=== PATIENT | male | born 1940 | race Asian ===

== ENCOUNTER 2018-08-12 11:31 | Inpatient (IN) | payer OTHER ==
[~2018-08-12] VITALS: Ht 170.2 cm; Wt 81.6 kg
--- NOTE | 2018-08-12 11:35 | NUR ---
AAOX3, CAME TO ER C/O SUDDEN L LEG NUMBNESS/WEAKNESS AT 1053, NOW ALSO NECK PRESSURE. BLOOD GLUCOSE 195MG/DL. RR IS EVEN AND UNLABORED WITH NAD NOTED. SKIN IS WARM AND DRY. FACE SYMMETRICAL. STRONG AND BILATERAL ECHOCARDIOGRAPHY TECH ON UPPER EXTREMITIES. PLACED ON THE MONITOR. AWAITING MD FOR EVAL.
--- NOTE | 2018-08-12 11:42 | NUR ---
PT TAKEN TO CT
[2018-08-12] MEDS ORDERED: IOHEXOL-350 100 ML VIAL IV ONE (11:43)
[2018-08-12 11:45] LABS: BASOPHILS # (AUTO) 0.1 /CMM (0.0-0.2); BASOPHILS % (AUTO) 1.1 % (0.0-2.0); EOSINOPHILS % (AUTO) 1.4 % (0.0-6.0); HEMATOCRIT 42 % (39-51); HEMOGLOBIN 14.4 g/dL (13.5-17.5); LYMPHOCYTES # (AUTO) 2.1 /CMM (0.8-4.8); LYMPHOCYTES % (AUTO) 28.8 % (20.0-44.0); MEAN CORPUSCULAR HGB CONC 35 g/dl (31.0-36.0); MEAN CORPUSCULAR VOLUME 90 fL (80-96); MONOCYTES # (AUTO) 0.6 /CMM (0.1-1.30); MONOCYTES % (AUTO) 7.5 % (2.0-12.0); NEUTROPHILS # (AUTO) 4.6 /CMM (1.8-8.9); NEUTROPHILS % (AUTO) 61.2 % (43.0-81.0); PLATELET COUNT (AUTO) 290 /CMM (150-450); RDW COEFFICIENT OF VARIATION 11.4 (11.5-15.0); RED BLOOD CELL COUNT(AUTO) 4.64 MIL/uL (4.5-6.0); WHITE BLOOD COUNT (AUTO) 7.4 K/uL (4.3-11.0)
[2018-08-12 11:56] LABS: CALCIUM, SERUM 8.9 mg/dL (8.5-10.1); CARBON DIOXIDE 25 mmol/L (21-32); CHLORIDE 100 mmol/L (98-107); CREATININE 1.1 mg/dL (0.6-1.3); GLUCOSE 190 mg/dL (74-106); POTASSIUM 3.7 mmol/L (3.5-5.1); SODIUM SERUM 135 mmol/L (136-145); UREA NITROGEN, BLOOD 14 mg/dL (7-18)
[2018-08-12 12:00] LABS: INR 0.88 (0.85-1.15)
--- NOTE | 2018-08-12 12:02 | NUR ---
PT RETURNED BACK FROM CT.
[2018-08-12 12:05] LABS: TROPONIN I 0.006 ng/mL (0.00-0.056)
[2018-08-12 12:11] LABS: CHOLESTEROL 192 mg/dL (<200); HDL CHOLESTEROL 54 mg/dL (40-60); LDL 133 mg/dL (0-99); TRIGLYCERIDES 170 mg/dL (30-150)
--- NOTE | 2018-08-12 12:15 | NUR ---
DR ESTRADA, NEUROLOGIST, TALKING TO PATIENT VIA TELE-STROKE VIDEO CONF.
--- NOTE | 2018-08-12 12:30 | NUR ---
pt states "feel better now" NIHSS now 0. NO TPA advised per teleneuro. Pt and family aware of plan of care
--- NOTE | 2018-08-12 12:55 | NUR ---
REPORT GIVEN TO JANES KEITH FOR YASIR TELE 328-2
[2018-08-12 13:06] LABS: APPEARANCE,URINE Clear (CLEAR); BILIRUBIN,URINE Negative (NEGATIVE); BLOOD, URINE Negative Ery/uL (NEGATIVE); COLOR,URINE Yellow (YELLOW); KETONES,URINE Negative (NEGATIVE); LEUKOCYTE ESTERASE ,URINE Negative (NEGATIVE); NITRITE, URINE Negative (NEGATIVE); PH,URINE 8.5 (5.0-8.0); PROTEIN,URINE Negative (NEGATIVE); UGLUCOSE 100 MG/DL mg/dL (NEGATIVE); UROBILINOGEN,URINE 0.2 EU/dL (0.2)
--- NOTE | 2018-08-12 13:30 | NUR ---
ADMISSION NOTE RECEIVED PT. PT IS STABLE AND RESTING IN BED. NO S/S OF RESP DISTRESS OR SOB. NO C/O PAIN AT THIS MOMENT. PT BROUGHT IN TO ER FOR SUSPECTED STROKE. CODE STROKE CALLED IN ER. PT C/O NUMBNESS IN BLE. BUE & BLE STRENGTH INTACT. NO PRESENCE OF FACIAL ASYMMETRY. PT ABLE TO STAND/BEAR WEIGHT. TELE MONITOR PLACED, READING SR 80-85 BPM. IV ACCESS LOCATED RFA 18G SL. ADMISSION ORDERS RECEIVED. SAFETY MEASURES IN PLACE, CALL LIGHT WITHIN REACH. WILL CONTINUE TO MONITOR.
[2018-08-12] MEDS ORDERED: DEXTROSE 50%-WATER 50 ML DISP.SYRIN IV PRN (14:30)
[2018-08-12] MEDS ORDERED: INSULIN REGULAR, HUMAN 100 UNIT/ML 3 ML VIAL SQ PRN (14:30)
[2018-08-12] MEDS ORDERED: Z GUARD REMEDY 2 OZ OINT TP PRN (14:30)
[2018-08-12] MEDS ORDERED: hydrALAZINE HCL IV 20 MG VIAL IV PRN (14:30)
[2018-08-12] MEDS ORDERED: ACETAMINOPHEN 325 MG TABLET PO PRN (14:30)
[2018-08-12] MEDS ORDERED: MAGNESIUM HYDROXIDE 30 ML UDC PO PRN (14:30)
[2018-08-12] MEDS ORDERED: ONDANSETRON HCL/PF 4 MG/2 ML VIAL IVP PRN (14:30)
[2018-08-12] MEDS ORDERED: HYDROCODONE/APAP 5/325MG 1 EACH TABLET PO PRN (14:30)
[2018-08-12] MEDS: LISINOPRIL (10MG) 10 MG TABLET PO SCH (15:08)
[2018-08-12] MEDS: ENOXAPARIN SODIUM 40 MG/0.4 ML DISP.SYRIN SQ SCH (15:09)
[2018-08-12 15:12] LABS: ALBUMIN 4.3 g/dL (3.4-5.0); BILIRUBIN,DIRECT 0.1 mg/dL (0.0-0.2); BILIRUBIN,TOTAL 0.4 mg/dL (0.2-1.0); TOTAL PROTEIN, SERUM 7.8 g/dL (6.4-8.2)
[2018-08-12 15:15] LABS: THYROID STIMULATING HORMONE 4.174 uIU/mL (0.358-3.74)
[2018-08-12 16:00] VITALS: BP 161/82
[2018-08-12] MEDS: BLOOD SUGAR DIAGNOSTIC 1 EACH STRIP IN SCH ×2 (17:29→21:50)
--- NOTE | 2018-08-12 19:16 | NUR ---
RN CLOSING NOTE PT IN BED RESTING. FAMILY BEDSIDE. NO S/S OF RESP DISTRESS OR SOB. NO C/O PAIN. PT REQUESTING ONE OVERNIGHT VISITOR, WILL F/U WITH INFORMATION TECHNOLOGY AUDIT MANAGER. IV ACCESS ON RFA INFILTRATED. NEW ACCESS BEGUN ON LEFT WRIST 22G SL. SAFETY MEASURES IN PLACE, CALL LIGHT WITHIN REACH. WILL ENDORSE TO INFORMATION TECHNOLOGY AUDIT MANAGER FOR YASIR.
--- NOTE | 2018-08-12 19:30 | NUR ---
RN NOTES RECEIVED PT. SLEEPING BUT AROUSABLE, GUAMANIAN SPEAKING, GRANDSON AT BEDSIDE, SR ON TELE MONITOR, HR-80.ENIES PAIN, NO SOB, CALL LIGHT WITHIN REACH, [id number], CONTINUE TO MONITOR
[2018-08-12 20:00] VITALS: BP 137/66
[2018-08-12] MEDS: ATORVASTATIN 10 MG TABLET PO SCH ×2 (21:50→21:56)
[2018-08-12] MEDS ORDERED: ZOLPIDEM TARTRATE 5 MG TABLET PO PRN (22:00)
[2018-08-13] VITALS: BP 132/70
[2018-08-13 04:32] VITALS: BP 118/66
--- NOTE | 2018-08-13 06:35 | NUR ---
RN NOTES AWAKE, DENIES PAIN, NO SOB,.MORNING CARE RENDERED, PT. NEEDS ATTENDED
[2018-08-13 07:10] LABS: BASOPHILS % (AUTO) 0.5 % (0.0-2.0); HEMATOCRIT 43 % (39-51); HEMOGLOBIN 13.4 g/dL (13.5-17.5); LYMPHOCYTES # (AUTO) 1.2 /CMM (0.8-4.8); LYMPHOCYTES % (AUTO) 17.9 % (20.0-44.0); MEAN CORPUSCULAR HGB CONC 32 g/dl (31.0-36.0); MEAN CORPUSCULAR VOLUME 93 fL (80-96); MONOCYTES # (AUTO) 0.6 /CMM (0.1-1.30); MONOCYTES % (AUTO) 8.8 % (2.0-12.0); NEUTROPHILS # (AUTO) 4.9 /CMM (1.8-8.9); NEUTROPHILS % (AUTO) 70.8 % (43.0-81.0); PLATELET COUNT (AUTO) 313 /CMM (150-450); RDW COEFFICIENT OF VARIATION 12.3 (11.5-15.0); RED BLOOD CELL COUNT(AUTO) 4.57 MIL/uL (4.5-6.0); WHITE BLOOD COUNT (AUTO) 6.9 K/uL (4.3-11.0)
[2018-08-13 07:14] LABS: CALCIUM, SERUM 8.6 mg/dL (8.5-10.1); CARBON DIOXIDE 26 mmol/L (21-32); CHLORIDE 103 mmol/L (98-107); CREATININE 0.9 mg/dL (0.6-1.3); GLUCOSE 111 mg/dL (74-106); MAGNESIUM 1.9 mg/dL (1.8-2.4); PHOSPHORUS 2.8 mg/dL (2.5-4.9); POTASSIUM 3.9 mmol/L (3.5-5.1); SODIUM SERUM 139 mmol/L (136-145); UREA NITROGEN, BLOOD 12 mg/dL (7-18)
[2018-08-13] MEDS: BLOOD SUGAR DIAGNOSTIC 1 EACH STRIP IN SCH ×4 (07:31→21:02)
--- NOTE | 2018-08-13 07:58 | NUR ---
RN OPENING NOTES RECEIVED PT. STABLE AND SLEEPING BUT AROUSABLE. IRAQI SPEAKING, HOWEVER UNDERSTANDS NIGERIEN. GRANDSON AT BEDSIDE. TELE MONITOR IN PLACE READING SR 80-85 BPM. NO S/S OF RESP DISTRESS OR SOB. NO C/O PAIN AT THIS TIME. SAFETY MEASURES IN PLACE, CALL LIGHT WITHIN REACH,WILL CONTINUE TO MONITOR
[2018-08-13 08:00] VITALS: BP 128/66
[2018-08-13] MEDS: ASPIRIN 81 MG TAB.CHEW PO SCH (08:15)
[2018-08-13] MEDS: LISINOPRIL (10MG) 10 MG TABLET PO SCH (08:15)
[2018-08-13] MEDS: ENOXAPARIN SODIUM 40 MG/0.4 ML DISP.SYRIN SQ SCH (08:20)
[2018-08-13 10:38] LABS: TROPONIN I < 0.017 ng/mL (0.00-0.056)
[2018-08-13 10:43] LABS: THYROID STIMULATING HORMONE 3.405 uIU/mL (0.358-3.74)
[2018-08-13 12:00] VITALS: BP_SYST 143; BP_SYST 152; BP_DIAS 64; BP_DIAS 72
[2018-08-13 16:00] VITALS: BP 152/72
--- NOTE | 2018-08-13 18:52 | NUR ---
RN CLOSING NOTES PT IN BED RESTING. NO S/S OF RESP DISTRESS OR SOB. NO C/O PAIN AT THIS TIME. PT SCHEDULEDC FOR CT ANGIO OF HEART WITH 3D IMAGE TOMORROW MORNING. TO BE NPO AT MIDNIGHT. CONSENT FORM SIGNED AND PLACED IN CHART. SAFETY MEASURES IN PLACE, CALL LIGHT IN REACH. WILL ENDORSE TO LAW INSTRUCTOR FOR YASIR.
--- NOTE | 2018-08-13 19:05 | NUR ---
HAY STACKER OPERATOR OPENING NOTES: RECEIVED PT AND IS LAYING IN BED AT THIS TIME. PT MALTESE SPEAKING ONLY BUT CAN MAKE HIS NEEDS KNOWN AND UNDERSTAND SOME MAURITIAN. EXPLAINED TO PT THAT HE HAS A PROCEDURE TOMORROW AND WILL BE NPO POST MIDNIGHT. PT UNDERSTOOD. IV REMAINS INTACT AND HAS BEEN FLUSHED. CURRENTLY H/L. CALL LIGHT WITHIN PT'S REACH. BED KEPT IN LOW, LOCKED POSITION, AND SIDE RAILS X 2UP. WILL CONTINUE TO MONITOR PT.
[2018-08-13 20:00] VITALS: BP 118/57
[2018-08-13] MEDS: ATORVASTATIN 10 MG TABLET PO SCH (21:02)
[2018-08-14] VITALS: BP 146/70
[2018-08-14 04:00] VITALS: BP 122/70
[2018-08-14] MEDS: BLOOD SUGAR DIAGNOSTIC 1 EACH STRIP IN SCH ×2 (06:25→11:24)
--- NOTE | 2018-08-14 06:36 | NUR ---
DIRECTOR OF ENTERTAINMENT CLOSING NOTES: ALL NEEDS WERE ATTENDED AND ANTICIPATED FOR. PT HAS BEEN NPO SINCE MIDNIGHT. FAMILY AT BEDSIDE TO HELP TRANSLATE. IV REMAINS INTACT ON L WRIST #22G AND IS PATENT AND INTACT. CURRENTLY H/L. BLOOD SGUAR THIS AM WAS 106. Addendum: 08/14/18 at 0637 by CHRISTINE LAMBERT RN PT ON TELE BOX AND READING SHOWS SR 69. CALL LIGHT WITHIN PT'S REACH. BED KEPT IN LOW, LOCKED POSITION, AND SIDE RAILS X 2UP. WILL ENDORSE TO AM NURSE FOR YASIR.
--- NOTE | 2018-08-14 07:30 | NUR ---
PT RECEIVED RESTING COMFORTABLY IN BED. NO S/S OR C/O PAIN OR DISTRESS NOTED. SIDE RAILS UP X2, CALL LIGHT LEFT WITHIN REACH. WILL CONTINUE PLAN OF CARE.
[2018-08-14 08:00] VITALS: BP 145/75
[2018-08-14] MEDS ORDERED: REGADENOSON 0.4 MG/5 ML DISP.SYRIN IVP ONE (08:00)
[2018-08-14] MEDS: LISINOPRIL (10MG) 10 MG TABLET PO SCH (08:33)
[2018-08-14] MEDS ORDERED: METOPROLOL TARTRATE INJ 5 MG/5 ML AMPUL IVP PRN (09:30)
[2018-08-14] MEDS ORDERED: IV NS 0.9% 250 ML IV ONE (10:15)
[2018-08-14] MEDS ORDERED: IOHEXOL-350 100 ML VIAL IV ONE (10:15)
[2018-08-14] MEDS ORDERED: CT SWABBABLE VALVE TRANS SET 1 EA INFUS.SET MC ONE (10:15)
[2018-08-14] MEDS ORDERED: NITROGLYCERIN 0.4 MG/TAB BOTTLE ONE (10:25)
--- NOTE | 2018-08-14 10:59 | NUR ---
CTA RN NOTE 1010: Patient VSS, placed RAC 18 by [facility] radiology. Given 5mg Metoprolol, HR 81. 1045: Patient received 5mg Metoprolol x3 doses and Nitro 0.4 Sl x1 for the CTA. Patient back to room 329, VSS SBP 140's, HR 60's. Encouraged patient to drink more water to flush dye.
[2018-08-14] MEDS: ASPIRIN 81 MG TAB.CHEW PO SCH (11:20)
[2018-08-14] MEDS: ENOXAPARIN SODIUM 40 MG/0.4 ML DISP.SYRIN SQ SCH (11:23)
[2018-08-14] MEDS ORDERED: ASPI-1169 PO (15:45)
[2018-08-14] MEDS ORDERED: ATOR10TA PO (15:45)
[2018-08-14 16:00] VITALS: BP 144/71
--- NOTE | 2018-08-14 18:56 | NUR ---
DISCHARGE INSTRUCTIONS GIVEN ORDERED. ENCOURAGED TO FOLLOW UP WITH PMD INSTRUCTED. ALL QUESTIONS AND CONCERNS ADDRESSED. PATIENT VERBALIZED UNDERSTANDING. MEDICATION RECONCILIATION FORM COMPLETED AND COPY GIVEN TO PATIENT. IV REMOVED WITH CATHETER INTACT, PRESSURE DRESSING APPLIED. PATIENT TAKEN TO VEHICLE WITH ALL PERSONAL BELONGINGS, ACCOMPANIED BY STAFF AND FAMILY MEMBER. NO DISTRESS NOTED AT TIME OF DEPARTURE.
== END 2018-08-14 18:00 | disposition home or self-care (01) | DRG 69 ==
LOC: ER 11:32 → TELE 12:58 → MED 08-14 14:53
PROVIDERS: ADMIT Nurse Practitioner Acute Care; ATTEND Nurse Practitioner Acute Care
DX: G45.9 Transient cerebral ischemic attack, unspecified (principal); G93.41 Metabolic encephalopathy; I16.9 Hypertensive crisis, unspecified; E87.1 Hypo-osmolality and hyponatremia; I11.9 Hypertensive heart disease without heart failure; Z91.14 Patient's other noncompliance with medication regimen; M10.9 Gout, unspecified; E05.90 Thyrotoxicosis, unspecified without thyrotoxic crisis or storm; E78.5 Hyperlipidemia, unspecified; I25.10 Atherosclerotic heart disease of native coronary artery without angina pectoris
CPT/HCPCS: 36415; 70450-TC; 70496-TC; 70498-TC; 71045-TC; 75574; 80048-TC; 80061-TC; 80076-TC; 80305; 81000-TC; 82962-TC; 83735-TC; 83880; 84100-TC; 84439-TC; 84443-TC; 84484-TC; 85025-TC; 85652-TC; 85730-TC; 87081-TC; 92611-TC; 93307-TC; A4606; J1650; J1815; J2785; J3490; J7030; J7040; J7050; Q9967; Z7610

== ENCOUNTER 2022-04-22 10:48 | Inpatient (IN) | payer BC, OTHER ==
[~2022-04-22] VITALS: Ht 170.2 cm; Wt 80.7 kg
[~2022-04-22 10:48] MED LIST: ASPI-1169 PO; ATOR10TA PO
[2022-04-22] MEDS ORDERED: SIMV-46 PO (10:58)
[2022-04-22] MEDS ORDERED: BENA40TA8 PO (10:58)
[2022-04-22] MEDS ORDERED: AMLO-213 PO (10:58)
--- NOTE | 2022-04-22 11:05 | NUR ---
BB son to ER, C/O SOB for the last 2 months - worst last night with dizziness. AMBULATORY, PLACED ON BED, AAOX4, RR-20, SATURATING AT 98%RA
--- NOTE | 2022-04-22 11:11 | NUR ---
AT BED SIDE
[2022-04-22 11:30] LABS: BASOPHILS % (AUTO) 0.6 % (0.0-2.0); EOSINOPHILS % (AUTO) 1.2 % (0.0-6.0); HEMATOCRIT 39 % (39-51); HEMOGLOBIN 13.7 g/dL (13.5-17.5); LYMPHOCYTES # (AUTO) 1.4 K/uL (0.8-4.8); LYMPHOCYTES % (AUTO) 16.4 % (20.0-44.0); MEAN CORPUSCULAR HGB CONC 35 g/dl (31.0-36.0); MEAN CORPUSCULAR VOLUME 92 fL (80-96); MONOCYTES # (AUTO) 0.7 K/uL (0.1-1.30); MONOCYTES % (AUTO) 8.6 % (2.0-12.0); NEUTROPHILS # (AUTO) 6.1 K/uL (1.8-8.9); NEUTROPHILS % (AUTO) 73.2 % (43.0-81.0); PLATELET COUNT (AUTO) 252 K/uL (150-450); WHITE BLOOD COUNT (AUTO) 8.3 K/uL (4.3-11.0)
--- NOTE | 2022-04-22 11:42 | NUR ---
X-RAY TECH AT BED SIDE
[2022-04-22 11:49] LABS: CALCIUM, SERUM 8.7 mg/dL (8.5-10.1); CARBON DIOXIDE 25 mmol/L (21-32); CHLORIDE 99 mmol/L (98-107); GLUCOSE 166 mg/dL (74-106); POTASSIUM 3.8 mmol/L (3.5-5.1); SODIUM SERUM 132 mmol/L (136-145); UREA NITROGEN, BLOOD 19 mg/dL (7-18)
[2022-04-22 12:01] LABS: ALANINE AMINOTRANSFERASE 37 U/L (12-78); ALBUMIN 4.1 g/dL (3.4-5.0); ALKALINE PHOSPHATASE 58 U/L (46-116); ASPARTATE AMINOTRANSFERASE 30 U/L (15-37); BILIRUBIN,DIRECT 0.1 mg/dL (0.0-0.2); BILIRUBIN,TOTAL 0.3 mg/dL (0.2-1.0); TOTAL PROTEIN, SERUM 7.3 g/dL (6.4-8.2)
--- NOTE | 2022-04-22 12:23 | NUR ---
MOVE SHEET SUBMITTED.
[2022-04-22] MEDS ORDERED: FUROSEMIDE 20 MG/2 ML VIAL IV ONE (13:00)
[2022-04-22] MEDS ORDERED: ASPIRIN 81 MG TAB.CHEW PO ONE (13:00)
[2022-04-22] MEDS ORDERED: FUROSEMIDE 20 MG/2 ML VIAL ONE (13:20)
[2022-04-22] MEDS ORDERED: ASPIRIN 81 MG TAB.CHEW ONE (13:21)
--- NOTE | 2022-04-22 14:25 | NUR ---
CALLED [facility] PAGED LOR
--- NOTE | 2022-04-22 15:40 | NUR ---
REPORT GIVEN TO INNA LOCKWOOD 328-1
--- NOTE | 2022-04-22 16:10 | NUR ---
PATIENT ADMITTED FROM ER, ADMIT DX IS NSTEMI REPORTED BY INNA OQUENDO. IN NO ACUTE DISTRESS OBSERVED, DENIES CHEST PAIN. NOTICED DVT SCORE MORE THAN 3 INFORMED MD FOR PROPHYLAXIS. CALL LIGHT WITHIN RFEACH, WILL CONTINUE TO MONITOR.
[2022-04-22] MEDS ORDERED: Z GUARD REMEDY 4 OZ OINT TP PRN (17:30)
[2022-04-22] MEDS ORDERED: ACETAMINOPHEN 325 MG TABLET PO PRN (17:30)
[2022-04-22] MEDS ORDERED: MORPHINE SULFATE INJ 2 MG/ML DISP.SYRIN IV PRN (17:30)
[2022-04-22] MEDS ORDERED: ONDANSETRON HCL/PF 4 MG/2 ML VIAL IVP PRN (17:30)
[2022-04-22] MEDS ORDERED: MAGNESIUM HYDROXIDE 30 ML UDC PO PRN (17:30)
[2022-04-22] MEDS ORDERED: MAG HYDROX/AL HYDROX/SIMETH 30 ML UDC PO PRN (17:30)
[2022-04-22 17:36] VITALS: BP 155/66
[2022-04-22] MEDS: FUROSEMIDE 40 MG/4 ML VIAL IV SCH (17:56)
--- NOTE | 2022-04-22 18:29 | NUR ---
RN CLOSE NOTE PATIENT IN BED. IN NO ACUTE DISTRESS OBSERVED. DENIES CHEST PAIN. RESPIRATION EVEN AND UNLABORED ON ROOM AIR. SKIN IS WARM TO TOUCH KEEP CLEAN/DRY. KEPT ELEVATED HOB FOR ASPIRATION PRECAUTION AND ENSURE AIR WAY, ALSO LOWEST POSITION OF THE BED FOR SAFETY. CALL LIGHT WITHIN REACH, WILL ENDORSE TO SPECIAL AGENT SECRET SERVICE.
--- NOTE | 2022-04-22 19:37 | NUR ---
LEAD CUSTOMER SERVICE REPRESENTATIVE OPENING RECEIVED PATIENT IN BED, FRANCIE SPEAKING ALERT AND ORIENTED. PER PATIENT CAN SPEAK A LITTLE LAO. NO S/S OF APPARENT DISTRESS ON ROOM AIR. DENIES PAIN. R. WRIST IV ACCESS NO FLUIDS RUNNING AT THIS TIME. TELE MONITOR READING SR WITH 71 BPM AT THIS TIME. ORIENTED WITH THE USE OF CALL LIGHT. WILL CONTINUE WITH PLAN OF CARE FOR PATIENT.
[2022-04-22 20:00] VITALS: BP 150/62
[2022-04-22] MEDS: ENOXAPARIN SODIUM 80 MG/0.8 ML DISP.SYRIN SQ SCH (21:08)
[2022-04-22] MEDS: SIMVASTATIN 20 MG TABLET PO SCH (21:13)
--- NOTE | 2022-04-22 21:40 | NUR ---
ANIMAL CARE SERVICE WORKER NOTE EMILEE COIL REPAIR TECHNICIAN ID #[id number] USED TO GIVE PATIENT HIS MEDICATIONS. NO QUESTIONS NOR CONCERN PER PATIENT.
[2022-04-23] VITALS (7 sets, daily range): BP systolic 118–142; BP diastolic 53–74
[2022-04-23 06:22] LABS: BASOPHILS % (AUTO) 0.6 % (0.0-2.0); EOSINOPHILS % (AUTO) 3.3 % (0.0-6.0); HEMATOCRIT 41 % (39-51); HEMOGLOBIN 14.1 g/dL (13.5-17.5); LYMPHOCYTES # (AUTO) 1.6 K/uL (0.8-4.8); LYMPHOCYTES % (AUTO) 21.9 % (20.0-44.0); MEAN CORPUSCULAR HGB CONC 35 g/dl (31.0-36.0); MEAN CORPUSCULAR VOLUME 91 fL (80-96); MONOCYTES # (AUTO) 0.8 K/uL (0.1-1.30); MONOCYTES % (AUTO) 10.9 % (2.0-12.0); NEUTROPHILS # (AUTO) 4.5 K/uL (1.8-8.9); NEUTROPHILS % (AUTO) 63.3 % (43.0-81.0); PLATELET COUNT (AUTO) 265 K/uL (150-450); RED BLOOD CELL COUNT(AUTO) 4.46 MIL/uL (4.5-6.0); WHITE BLOOD COUNT (AUTO) 7.2 K/uL (4.3-11.0)
[2022-04-23 06:51] LABS: CALCIUM, SERUM 8.8 mg/dL (8.5-10.1)
--- NOTE | 2022-04-23 06:52 | NUR ---
PATIENT REGISTRATION REPRESENTATIVE CLOSING NOTE PATIENT IN BED WITH EYES CLOSED. EASY TO AROUSE. NO S/S OF APPARENT DISTRESS ON ROOM AIR. DENIES PAIN AT THIS TIME. TELE MONITOR READING SR WITH 61 BPM THIS MORNING. NO FLUIDS RUNNING AT THIS TIME. NEEDS ATTENDED. ALL SCHEDULED MEDICATION ADMINISTERED. WILL ENDORSE TO MORNING SHIFT RN FOR CONTINUITY OF CARE.
--- NOTE | 2022-04-23 07:20 | NUR ---
ms rn received on bed, awake,alert,oriented x4,not in any form of distress, respirations even and unlabored,no sob noted, lungs are clear,abdomen soft,positive bowel sounds,deneis pain at thias time.
--- NOTE | 2022-04-23 08:30 | NUR ---
ms mckinney breakfast served,due meds given,tolerated well.
[2022-04-23] MEDS: FUROSEMIDE 40 MG/4 ML VIAL IV SCH ×2 (08:44→17:27)
[2022-04-23] MEDS: LISINOPRIL (20MG) 20 MG TABLET PO SCH (08:44)
[2022-04-23] MEDS: ASPIRIN 81 MG TAB.CHEW PO SCH (08:45)
[2022-04-23] MEDS: AMLODIPINE BESYLATE 10 MG TABLET PO SCH (08:45)
[2022-04-23] MEDS: ENOXAPARIN SODIUM 80 MG/0.8 ML DISP.SYRIN SQ SCH ×2 (08:46→21:28)
--- NOTE | 2022-04-23 12:00 | NUR ---
ms note lunch served, patient denies any pain or discomfort at this time will continue to monitor
[2022-04-23] MEDS: SIMVASTATIN 20 MG TABLET PO SCH (21:27)
[2022-04-24] VITALS: BP 121/59
[2022-04-24 03:57] VITALS: BP 120/50
[2022-04-24 04:00] VITALS: BP 120/50
--- NOTE | 2022-04-24 05:53 | NUR ---
DX NSTEMI, SR ON THE TELE, ALERT/ORIENTED X4, NO COMPLAIN OF CHEST PAIN, STABLE ON ROOM AIR. [place] SPEAKING ONLY, GENERALIZED WEAKNESS, AMBULATORY, CONTINENT OF BOWEL AND BLADDER. ECHO, DIURESIS, ON LASIX, CARDIO CONSULT
[2022-04-24 06:46] LABS: BASOPHILS # (AUTO) 0.1 K/uL (0.0-0.2); BASOPHILS % (AUTO) 0.7 % (0.0-2.0); EOSINOPHILS % (AUTO) 2.8 % (0.0-6.0); HEMATOCRIT 40 % (39-51); HEMOGLOBIN 13.6 g/dL (13.5-17.5); LYMPHOCYTES # (AUTO) 1.9 K/uL (0.8-4.8); LYMPHOCYTES % (AUTO) 22.9 % (20.0-44.0); MEAN CORPUSCULAR HGB CONC 34 g/dl (31.0-36.0); MEAN CORPUSCULAR VOLUME 91 fL (80-96); MONOCYTES # (AUTO) 0.9 K/uL (0.1-1.30); MONOCYTES % (AUTO) 10.8 % (2.0-12.0); NEUTROPHILS # (AUTO) 5.1 K/uL (1.8-8.9); NEUTROPHILS % (AUTO) 62.8 % (43.0-81.0); PLATELET COUNT (AUTO) 257 K/uL (150-450); WHITE BLOOD COUNT (AUTO) 8.1 K/uL (4.3-11.0)
[2022-04-24 07:06] LABS: CALCIUM, SERUM 8.8 mg/dL (8.5-10.1); POTASSIUM 3.9 mmol/L (3.5-5.1)
[2022-04-24] MEDS: ASPIRIN 81 MG TAB.CHEW PO SCH (08:52)
[2022-04-24] MEDS: AMLODIPINE BESYLATE 10 MG TABLET PO SCH (08:52)
[2022-04-24 08:53] VITALS: BP 121/63
[2022-04-24] MEDS: FUROSEMIDE 40 MG/4 ML VIAL IV SCH (08:53)
[2022-04-24] MEDS: LISINOPRIL (20MG) 20 MG TABLET PO SCH (08:53)
[2022-04-24] MEDS: ENOXAPARIN SODIUM 80 MG/0.8 ML DISP.SYRIN SQ SCH (08:54)
[2022-04-24] MEDS ORDERED: AMLO-213 PO (16:36)
[2022-04-24] MEDS ORDERED: METO25TA6 PO (16:36)
[2022-04-24] MEDS ORDERED: FURO20TA4 PO (16:36)
--- NOTE | 2022-04-24 18:07 | NUR ---
SHIFT SUMMARY VSS, AFEBRILE, DENIES ANY PAIN THROUGHOUT THE SHIFT. A/O X4. FRISIAN SPEAKING ONLY. ON RA SATURATING 99%, IN NO APPARENT DISTRESS. LOVENOX FOR VTE. SAFETY MEASURES MAINTAINED. BED IN LOWEST POSITION, BRAKES LOCKED. SIDE RAILS UP X2. CALL LIGHT WITHIN REACH. DISCHARGE INSTRUCTIONS AND HEALTH TEACHINGS GIVEN TO PT AND MELIA (NEPHEW), BOTH VERBALIZES UNDERSTANDING.
[2022-04-25] MEDS ORDERED: AMLODIPINE BESYLATE 10 MG TABLET PO SCH (09:00)
[2022-04-25] MEDS ORDERED: FUROSEMIDE 20 MG TABLET PO SCH (09:00)
[2022-04-25] MEDS ORDERED: ASPIRIN 81 MG TAB.CHEW PO SCH (09:00)
== END 2022-04-24 18:04 | disposition home or self-care (01) | DRG 280 ==
LOC: ER 11:05 → TELE 15:25
PROVIDERS: ADMIT Internal Medicine; ATTEND Internal Medicine
DX: I21.4 Non-ST elevation (NSTEMI) myocardial infarction (principal); I50.33 Acute on chronic diastolic (congestive) heart failure; E87.1 Hypo-osmolality and hyponatremia; I11.0 Hypertensive heart disease with heart failure; I16.0 Hypertensive urgency; Z79.82 Long term (current) use of aspirin; Z20.822 Contact with and (suspected) exposure to COVID-19; I08.0 Rheumatic disorders of both mitral and aortic valves
CPT/HCPCS: 36415; 71045-TC; 80048-TC; 80076-TC; 83735-TC; 83880; 84100-TC; 84484-TC; 85025-TC; 87081-TC; 93307-TC; C9803; G0378; J1650; J1940

== ENCOUNTER 2023-12-13 22:56 | Emergency (ER) | payer BC, OTHER ==
[~2023-12-13] VITALS: Ht 170.2 cm; Wt 87.1 kg
[~2023-12-13 22:56] MED LIST changes: +AMLO-213 PO; -ATOR10TA PO; +BENA40TA8 PO; +FURO20TA4 PO; +METO25TA6 PO; +SIMV-46 PO
[2023-12-14 01:19] LABS: BASOPHILS # (AUTO) 0.1 K/uL (0.0-0.2); BASOPHILS % (AUTO) 0.8 % (0.0-2.0); EOSINOPHILS # (AUTO) 0.3 K/uL (0.0-0.7); EOSINOPHILS % (AUTO) 3.5 % (0.0-6.0); HEMATOCRIT 34 % (39-51); HEMOGLOBIN 11.5 g/dL (13.5-17.5); LYMPHOCYTES # (AUTO) 1.4 K/uL (0.8-4.8); LYMPHOCYTES % (AUTO) 16.7 % (20.0-44.0); MEAN CORPUSCULAR HEMOGLOBIN 32 PG (26.0-33.0); MEAN CORPUSCULAR HGB CONC 34 g/dl (31.0-36.0); MEAN CORPUSCULAR VOLUME 93 fL (80-96); MONOCYTES # (AUTO) 0.9 K/uL (0.1-1.30); MONOCYTES % (AUTO) 10.9 % (2.0-12.0); NEUTROPHILS # (AUTO) 5.5 K/uL (1.8-8.9); NEUTROPHILS % (AUTO) 68.1 % (43.0-81.0); PLATELET COUNT (AUTO) 247 K/uL (150-450); RED BLOOD CELL COUNT(AUTO) 3.65 MIL/uL (4.5-6.0); RED CELL DISTRIBUTION WIDTH 12.3 % (11.5-15.0); WHITE BLOOD COUNT (AUTO) 8.2 K/uL (4.3-11.0)
[2023-12-14 01:31] LABS: INR 0.97 (0.91-1.10); PARTIAL THROMBOPLASTIN TIME 31.4 SEC (24.3-34.3); PROTHROMBIN TIME 10.3 SECS (9.2-11.1)
[2023-12-14 01:34] LABS: CALCIUM, SERUM 9.1 mg/dL (8.5-10.1); CREATININE 0.9 mg/dL (0.6-1.3)
[2023-12-14 02:25] VITALS: BP 134/86; TEMP 98; O2SAT 98
== END 2023-12-14 02:25 | disposition home or self-care (01) ==
LOC: ER 23:00
DX: Z71.1 Person with feared health complaint in whom no diagnosis is made (principal); I10 Essential (primary) hypertension; Z79.899 Other long term (current) drug therapy; Z79.82 Long term (current) use of aspirin
CPT/HCPCS: 36415; 71045-TC; 80048-TC; 83880; 85025-TC; 85730-TC; 93970-TC